=== PATIENT | female | born 1965 | race Caucasian/White ===

== ENCOUNTER → 2016-06-28 | Day surgery (SDC) | payer MEDICARE ==
[~2016-06-28] MED LIST: B-COTAB41 PO; CYCL1TAB29 PO; DILA4TAB2 PO; ESTR1TAB PO; LIDOCAINE HCL 1% PF 30 ML VIAL INFIL ONE; LISI-515 PO; LYRI75CA PO; MEPERIDINE HCL 25 MG/ML VIAL IV ONE; METH10TA PO; MIDAZOLAM HCL 2 MG/2 ML VIAL IV ONE; MILK140C PO; MILK140C3 PO; OMEP20CA2 PO; OXYC-405 PO; OXYC20TA17 PO; PROPOFOL 200 MG/20 ML AMP IV ONE; REST0.05 EACH EYE; SODIUM CHLORIDE 0.9% 10 ML VIAL ONE; VITA500T PO; VITA500T83 PO; VITATAB25 PO; methylPREDNISolone ACETATE 80 MG/ML VIAL ONE
--- NOTE | 2016-07-02 22:17 | M6 ---
cc: ROSA HANSEN M.D. DATE 06/28/2016 1965 PROCEDURE Caudal epidural steroid injection. PROCEDURE NOTE: An IV was started, blood pressure cuff, pulse oximeter and EKG were applied. The patient was placed in the prone position on a Bobby table, sedated with small amounts of propofol titrated to effect. Vital signs were monitored and remained stable throughout the procedure. The sacral and coccygeal area were scrubbed with antimicrobial solution, prepped with 10% Betadine solution, draped with sterile drapes. Fluoroscopy was used in the lateral projection to clearly visualize the sacral hiatus. A 2-inch 22 gauge spinal needle was advanced under fluoroscopic guidance until it was positioned between the anterior and posterior lamina of the sacrum. There was negative aspiration for blood or CSF. No crepitus to injection of 3 mL of air. The patient was slowly given 20 mL of 0.5% Xylocaine, 80 mg of Depo-Medrol. Following this the patient was taken to the recovery room with stable vital signs, neurologically intact. W. MD АЛЕКСАНДР Gutierrez/ /8:50 AM /10:11 PM
== END | disposition home or self-care (01) ==
LOC: PHSDC 07:08
PROVIDERS: ATTEND Pain Medicine Interventional Pain Medicine
DX: M54.5 Low back pain (principal); M79.605 Pain in left leg; M79.604 Pain in right leg
CPT/HCPCS: 62323; 99152; J1040; J2175; J2250

== ENCOUNTER → 2016-09-13 | Day surgery (SDC) | payer MEDICARE ==
[~2016-09-13] MED LIST changes: +LIDOCAINE HCL 1% 30 ML VIAL NERV BLOCK ONE; -LIDOCAINE HCL 1% PF 30 ML VIAL INFIL ONE; -MEPERIDINE HCL 25 MG/ML VIAL IV ONE; +MEPERIDINE HCL 50 MG/ML VIAL IV ONE; -MILK140C3 PO; -OXYC20TA17 PO; -VITA500T PO
--- NOTE | 2016-09-14 09:04 | M6 ---
cc: ROSA MAE M.D. DATE: 09/13/2016 DATE OF : 1965 PROCEDURE Caudal epidural steroid injection. PROCEDURE NOTE History and physical was completed and signed. Consent was signed. Procedure site was marked. Medications were listed and reconciled. Pain score was recorded. Allergies were noted. Timeout was taken. Fluoroscopy time was recorded where applicable. Sedation was administered or directed by Dr. Mae. The patient was given oxygen. The patient was monitored by a registered nurse. Total procedure time was greater than 15 minutes. An IV was started, blood pressure cuff, pulse oximeter and EKG were applied. The patient was placed in the prone position, sedated with small amounts of Versed and propofol titrated to effect. Vital signs were monitored and remained stable throughout the procedure. The sacral and coccygeal area were scrubbed with antimicrobial solution and prepped with 10% Betadine solution. The sacral hiatus was palpated. A 2-1/2 inch, 20-gauge spinal needle was inserted easily on the first attempt. There was negative aspiration for blood or CSF. There was no apparent paresthesia. The patient was slowly given 20 mL of 0.5% Xylocaine, 80 mg of Depo-Medrol. The patient was taken to the recovery area with stable vital signs, neurologically intact. W. MD АЛЕКСАНДР Gutierrez/[place] /9:19 AM /8:55 AM
== END | disposition home or self-care (01) ==
LOC: PHSDC 07:41
PROVIDERS: ATTEND Pain Medicine Interventional Pain Medicine
DX: M54.9 Dorsalgia, unspecified (principal); M79.662 Pain in left lower leg; M79.661 Pain in right lower leg; Z88.5 Allergy status to narcotic agent; Z91.040 Latex allergy status
CPT/HCPCS: 62323; 99152; J1040; J2175; J2250

== ENCOUNTER 2016-12-26 09:30 | Emergency (ER) | payer MEDICARE ==
[~2016-12-26] VITALS: Ht 165.1 cm; Wt 65.0 kg
[~2016-12-26 09:30] MED LIST changes: -LIDOCAINE HCL 1% 30 ML VIAL NERV BLOCK ONE; -MEPERIDINE HCL 50 MG/ML VIAL IV ONE; -MIDAZOLAM HCL 2 MG/2 ML VIAL IV ONE; -PROPOFOL 200 MG/20 ML AMP IV ONE; -SODIUM CHLORIDE 0.9% 10 ML VIAL ONE; -methylPREDNISolone ACETATE 80 MG/ML VIAL ONE
[2016-12-26 09:32] VITALS: BP 194/124; PULSE 77; RESP 24; TEMP 97.6; O2SAT 99
--- NOTE | 2016-12-26 10:16 | PD ---
HPI Chief Complaint: Injury Time Seen by Provider: 10:16 Travel History International Travel<30 days: No Contact w/Intl Traveler<30days: No Traveled to known affect area: No History of Present Illness HPI 51-year-old female came to the emergency room with right shoulder pain. Patient says that yesterday she was up on her roof cleaning when she fell. As was a fall from about 10-12 feet height. She landed on her right shoulder she says. It has been hurting a lot. Patient says she was unable to sleep at night because of the pain. Vital signs are stable. Patient is on significant amount of pain medication on a daily basis at home. She was hypertensive but rest of the vital signs were stable. [facility] Past Medical History Narrative Medical List of her past medical, surgical, social and family history as reviewed from the nursing note. Hypertension: Yes (related to pain) Musculoskeletal: Yes (chronic neck and back pain from hx of fx) Tetanus Vaccination: < 5 Years Influenza Vaccination: No ?: Not Past Surgical History Hysterectomy: Yes Other Surgery: Yes (neck and cervical spine) Social History Alcohol Use: Yes (occasionally) Tobacco Use: Yes (1/2 pack a day) Substance Use: Yes (medical marijuana) Allergies-Medications (Allergen,Severity, Reaction): Coded Allergies: morphine (Unverified Allergy, Mild, Rash, 11/22/16) latex (Unverified Allergy, Unknown, 11/22/16) Comments List of her allergies reviewed from the nursing note. Reported Meds & Prescriptions Reported Meds & Active Scripts Active Reported Methadone (Methadone HCl) 10 Mg Tab 10 Mg PO TID Vitamin C ER (Ascorbic Acid) 500 Mg Mike 500 Mg PO DAILY Milk Thistle 140 Mg Cap 1 Cap PO DAILY Oxycodone ER (Oxycodone HCl) 20 Mg Tab 20 Mg PO Q8HR Restasis Opth 0.05% (Cyclosporine Opth 0.05%) 0.05% Emul 1 Drop EACH EYE BID Vitamin D-[address] (Cholecalciferol) 1,000 Unit Tab 1,000 Units PO DAILY Flexeril (Cyclobenzaprine HCl) 10 Mg Tab 10 Mg PO BID Estradiol 1 Mg Tab 1 Mg PO DAILY Dilaudid (Hydromorphone HCl) 4 Mg Tab 4 Mg PO TID PRN Lisinopril 20 Mg Tab 20 Mg PO BID Lyrica (Pregabalin) 75 Mg Cap 75 Mg PO TID Omeprazole 20 Mg Cap 1 Cap PO DAILY Vitamin B-Complex (B-Complex Vitamins) 1 Tab 1 Tab PO DAILY Narrative Medication List of her home medications reviewed from the nursing note. Review of Systems Except as stated in HPI: all other systems reviewed are Neg Physical Exam Narrative GENERAL: Awake, alert, significant distress SKIN: Focused skin assessment warm/dry. HEAD: Atraumatic. Normocephalic. EYES: Pupils equal and round. No scleral icterus. No injection or drainage. ENT: No nasal bleeding or discharge. Mucous membranes pink and moist. NECK: Trachea midline. No JVD. CARDIOVASCULAR: Regular rate and rhythm. No murmur appreciated. RESPIRATORY: No accessory muscle use. Clear to auscultation. Breath sounds equal bilaterally. GASTROINTESTINAL: Abdomen soft, non-tender, nondistended. Hepatic and splenic margins not palpable. MUSCULOSKELETAL: No obvious deformities. No clubbing. No cyanosis. No edema. Decreased range of motion of the right shoulder joint due to pain. No obvious deformity. Tender to even touch. NEUROLOGICAL: Awake and alert. No obvious cranial nerve deficits. Motor grossly within normal limits. Normal speech. PSYCHIATRIC: Appropriate mood and affect; insight and judgment normal. Data Data Last Documented VS Vital Signs Date Time Temp Pulse Resp B/P (MAP) Pulse Ox O2 Delivery O2 Flow Rate FiO2 12/26/16 12:17 86 136/60 (85) 97 12/26/16 09:32 97.6 24 Room Air Orders Orders Hydromorphone Pf Inj (Dilaudid Pf Inj) (12/26/16 10:30) Shoulder, Complete (>2vws) (12/26/16 ) Sling Cradle Arm (12/26/16 ) Sling Cradle Arm (12/26/16 ) MDM Medical Decision Making Medical Screen Exam Complete: Yes Emergency Medical Condition: Yes Medical Record Reviewed: Yes Differential Diagnosis Shoulder dislocation, shoulder fracture Narrative Course 11:40 AM x-ray does not show any abnormality. I'll give her a arm sling and she 'll be discharged home. She was given IM Dilaudid for getting the x-ray done given her significant discomfort. Procedures EKG Prior to Arrival: No Diagnosis Primary Impression: Right shoulder strain Qualified Codes: S46.911A - Strain of unspecified muscle, fascia and tendon at shoulder and upper arm level, right arm, initial encounter Referrals: Primary Care Physician Additional Instructions: Please return to the ER if the condition worsen or any other new concerns. Continue taking your opiate medications that he already have at home for the pain relief. Apply warm compresses alternating with cold compress. Med/Other Pt SpecificInfo: No Change to Meds Disposition: 01 DISCHARGE HOME Condition: Stable Mt Jacobs MD Dec 26, 2016 10:16
[2016-12-26] MEDS ORDERED: HYDROmorphone HCL PF 1 MG/ML VIAL SQ ONE (10:30)
--- NOTE | 2016-12-26 11:10 | RADRPT ---
EXAM DATE/TIME: 12/26/2016 10:51 [facility] COMPARISON: No previous studies available for comparison. INDICATIONS : Right shoulder pain after falling off the roof last night. MEDICAL HISTORY : Hypertension. Smoker. SURGICAL HISTORY : None. ENCOUNTER: Initial ACUITY: 2 days PAIN SCORE: 10/10 LOCATION: Right shoulder joint. FINDINGS: Degenerative changes anatomic alignment without fracture. Previous cervical spine fusion. Lung apex is clear. CONCLUSION: Negative for fracture, degenerative changes. Peterson Blanchard MD FACR on December 26, 2016 at 11:00 Board Certified Radiologist. This report was verified electronically.
[2016-12-26 12:12] VITALS: BP 136/60; PULSE 86
[2016-12-26 12:17] VITALS: BP 136/60
== END 2016-12-26 12:29 | disposition home or self-care (01) ==
LOC: NEPD 09:30
DX: S46.911A Strain of unspecified muscle, fascia and tendon at shoulder and upper arm level, right arm, initial encounter (principal); W13.2XXA Fall from, out of or through roof, initial encounter; Y93.H9 Activity, other involving exterior property and land maintenance, building and construction; Y92.008 Other place in unspecified non-institutional (private) residence as the place of occurrence of the external cause
CPT/HCPCS: 73030; 96372; 99284; J1170

== ENCOUNTER → 2017-02-27 | Day surgery (SDC) | payer MEDICARE ==
[~2017-02-27] MED LIST changes: +CYCL10TA PO; -CYCL1TAB29 PO; +DEXT1TAB18 PO; +DILA4TAB10 PO; -DILA4TAB2 PO; +LIDOCAINE HCL 1% 30 ML VIAL NERV BLOCK ONE; +MEPERIDINE HCL 50 MG/ML VIAL IV ONE; +MIDAZOLAM HCL 2 MG/2 ML VIAL IV ONE; +PHEN1LIQ60 PO; +PROPOFOL 200 MG/20 ML AMP IV ONE; +SODIUM CHLORIDE 0.9% 10 ML VIAL ONE; +methylPREDNISolone ACETATE 80 MG/ML VIAL ONE
--- NOTE | 2017-02-27 12:12 | M6 ---
cc: ROSA MAE M.D. DATE 02/27/2017 DATE OF 1965 PROCEDURE Caudal epidural steroid injection. History and physical was completed and signed. Consent was signed. Procedure site was marked. Medications were listed and reconciled. Pain score was recorded. Allergies were noted. Time out was taken. Fluoroscopy time was recorded where applicable. Sedation was administered or directed by Dr. Mae. The patient was given oxygen. The patient was monitored by a registered nurse. Total procedure time was greater than 15 minutes. PROCEDURE NOTE: An IV was started. Blood pressure cuff, pulse oximeter and EKG were applied. The patient was placed in the prone position, sedated with small amounts of Versed and propofol titrated to effect. Vital signs were monitored and remained stable throughout the procedure. The sacral and coccygeal area were scrubbed with antimicrobial solution and prepped with 10% Betadine solution. The sacral hiatus was palpated. A 2-inch 20 gauge spinal needle was inserted easily on the first attempt. There was negative aspiration for blood or CSF. There was no apparent paresthesia. The patient was slowly given 20 mL of 0.5% Xylocaine, 80 mg of Depo-Medrol. The patient was taken to the recovery area with stable vital signs, neurologically intact. W. MD АЛЕКСАНДР Gutierrez/[place] /10:36 AM /12:13 PM
== END | disposition home or self-care (01) ==
LOC: PHSDC 08:43
PROVIDERS: ATTEND Pain Medicine Interventional Pain Medicine
DX: M54.5 Low back pain (principal); M79.605 Pain in left leg; M79.604 Pain in right leg
CPT/HCPCS: 62323; 99152; J1040; J2175; J2250

== ENCOUNTER 2017-05-19 12:31 | Emergency (ER) | payer MEDICARE, MEDICAID ==
[~2017-05-19] VITALS: Ht 165.1 cm; Wt 70.0 kg
[~2017-05-19 12:31] MED LIST changes: -LIDOCAINE HCL 1% 30 ML VIAL NERV BLOCK ONE; -MEPERIDINE HCL 50 MG/ML VIAL IV ONE; -MIDAZOLAM HCL 2 MG/2 ML VIAL IV ONE; -PROPOFOL 200 MG/20 ML AMP IV ONE; -SODIUM CHLORIDE 0.9% 10 ML VIAL ONE; -methylPREDNISolone ACETATE 80 MG/ML VIAL ONE
[2017-05-19 12:34] VITALS: BP 200/116; PULSE 86; RESP 22; TEMP 98.3; O2SAT 99
[2017-05-19 12:42] VITALS: BP 207/98
[2017-05-19 14:27] VITALS: BP 184/84; PULSE 68; RESP 17; O2SAT 96
--- NOTE | 2017-05-19 14:27 | PD ---
HPI Chief Complaint: Injury Time Seen by Provider: 14:15 Travel History International Travel<30 days: No Contact w/Intl Traveler<30days: No Traveled to known affect area: No History of Present Illness HPI 52-year-old female presents for evaluation of right arm and shoulder pain. Symptoms started yesterday. She reports that yesterday she was driving, reached her arm behind her in order to grab her backpack when she felt sudden onset pain to the right shoulder and proximal arm. The pain is an aching pain which is constant and worse with range of motion activities at the right shoulder. She reports that she has had similar pain several times over the past few years and her right shoulder. She says that she actually had an outpatient MRI of the right shoulder performed 2 weeks ago and she is awaiting follow-up in order to discuss the results. She has no other complaints at this time. PFSH Past Medical History Hypertension: Yes (related to pain) Musculoskeletal: Yes (chronic neck and back pain from hx of fx) Past Surgical History Hysterectomy: Yes Other Surgery: Yes (neck and cervical spine) Social History Alcohol Use: Yes (occasionally) Tobacco Use: Yes (1/2 pack a day) Substance Use: Yes (medical marijuana) Allergies-Medications (Allergen,Severity, Reaction): Coded Allergies: morphine (Unverified Allergy, Mild, Rash, 05/19/17) latex (Unverified Allergy, Unknown, 05/19/17) Reported Meds & Prescriptions Reported Meds & Active Scripts Active Reported Nyquil Severe Cold/Flu Liq (Gkxvwjuxwxejn-Uiskxitotp-FZ-Apap Liq) 5-6.25-10-325 Mg/15 Ml Liq 15 Ml PO HS Mucinex DM Maximum Strength (Dextromethorphan-Guaifenesin ER 12 HR) 60-1,200 Mg Tab 1 Tab PO BID PRN Methadone (Methadone HCl) 10 Mg Tab 10 Mg PO TID Vitamin C ER (Ascorbic Acid) 500 Mg Mike 500 Mg PO DAILY Milk Thistle 140 Mg Cap 1 Cap PO DAILY Oxycodone ER (Oxycodone HCl) 20 Mg Tab 20 Mg PO Q8HR Restasis Opth (Cyclosporine Opth) 0.05% Emul 1 Drop EACH EYE BID Vitamin D-[address] (Cholecalciferol) 1,000 Unit Tab 1,000 Units PO DAILY Flexeril (Cyclobenzaprine HCl) 10 Mg Tab 10 Mg PO BID Estradiol 1 Mg Tab 1 Mg PO DAILY Dilaudid (Hydromorphone HCl) 4 Mg Tab 4 Mg PO TID PRN Lisinopril 20 Mg Tab 20 Mg PO BID Lyrica (Pregabalin) 75 Mg Cap 75 Mg PO TID Omeprazole 20 Mg Cap 1 Cap PO DAILY Vitamin B-Complex (B-Complex Vitamins) 1 Tab 1 Tab PO DAILY Review of Systems Musculoskeletal: Positive: Limited ROM, Pain Skin: Positive Other (denies open wounds) Neurologic: No: Weakness Physical Exam Narrative GENERAL: Well-developed well-nourished female in no acute distress SKIN: Warm and dry. HEAD: Atraumatic. Normocephalic. EYES: Pupils equal and round. No scleral icterus. No injection or drainage. ENT: No nasal bleeding or discharge. Mucous membranes pink and moist. NECK: Trachea midline. No JVD. CARDIOVASCULAR: Regular rate and rhythm. No murmur appreciated. RESPIRATORY: No accessory muscle use. Clear to auscultation. Breath sounds equal bilaterally. MUSCULOSKELETAL: The patient has unilateral range of motion limitation in the right shoulder with abduction, adduction, internal and external rotation. There is no obvious deformity. There is some tenderness to palpation to the right lateral glenohumeral joint as well as to the proximal right biceps. There is no obvious biceps tendon deformity. 2+ radial pulse bilaterally. Distal sensation is preserved in the median, radial and ulnar nerve distributions. NEUROLOGICAL: Awake and alert. No obvious cranial nerve deficits. Motor grossly within normal limits. Normal speech. Data Data Last Documented VS Vital Signs Date Time Temp Pulse Resp B/P (MAP) Pulse Ox O2 Delivery O2 Flow Rate FiO2 05/19/17 14:28 96 Room Air 05/19/17 14:27 68 17 184/84 (117) 05/19/17 12:34 98.3 Orders Orders Shoulder, Limited(2vws) (05/19/17 ) MDM Medical Decision Making Medical Screen Exam Complete: Yes Emergency Medical Condition: Yes Medical Record Reviewed: Yes Differential Diagnosis Rotator cuff tear, impingement, strain, dislocation, radiculopathy, brachial plexopathy, biceps tendon rupture Narrative Course Drainage of the right shoulder was obtained revealing no acute pathology. The patient is currently prescribed numerous opiate analgesics and would likely not benefit from any additional prescription analgesics. She is encouraged to follow-up with her physician in regards to her recent outpatient MRI imaging to discuss the results. Diagnosis Primary Impression: Right shoulder pain Additional Instructions: Follow-up with your physician in regards to the outpatient MRI imaging. Return for any emergent medical conditions. Med/Other Pt SpecificInfo: No Change to Meds Disposition: 01 DISCHARGE HOME Condition: Stable Ricci Padilla May 19, 2017 14:27
--- NOTE | 2017-05-19 15:00 | RADRPT ---
EXAM DATE/TIME: 05/19/2017 14:39 [facility] COMPARISON: No previous studies available for comparison. INDICATIONS : Anterior right shoulder pain after picking up a back pack. MEDICAL HISTORY : Hypertension. Smoker. Previous right shoulder injury. SURGICAL HISTORY : Cervical spine. ENCOUNTER: Initial ACUITY: 1 day PAIN SCORE: 8/10 LOCATION: Right shoulder FINDINGS: Two view examination of the right shoulder demonstrates no evidence of fracture or dislocation. The glenohumeral and acromioclavicular joints are maintained. Bony mineralization is normal. Previous a nterior and posterior spine fixation. CONCLUSION: Negative for fracture or dislocation. Follow up in 7-10 days is suggested if symptoms persist.. Peterson Blanchard MD FACR on May 19, 2017 at 14:58 Board Certified Radiologist. This report was verified electronically.
== END 2017-05-19 15:24 | disposition home or self-care (01) ==
LOC: NEPD 12:31
DX: M25.511 Pain in right shoulder (principal); I10 Essential (primary) hypertension; F17.200 Nicotine dependence, unspecified, uncomplicated; Z88.5 Allergy status to narcotic agent; Z79.899 Other long term (current) drug therapy
CPT/HCPCS: 73030; 99283